=== PATIENT | female | born 1980 | race Caucasian/White ===

== ENCOUNTER 2019-05-18 22:58 | Emergency (ER) | payer BC, OTHER ==
[~2019-05-18] VITALS: Ht 170 cm; Wt 107.0 kg
[~2019-05-18 22:58] MED LIST: BIRTH CONTROL; FLUO20CA25 PO; HYDR1TAB PO; METR500T PO; MTP25TSR PO; NAPR550T PO; ONDA8TAB9 PO; TRM50T PO
[2019-05-19] MEDS ORDERED: amLODIPine 5 MG (NORVASC) TAB PO ONE (00:15)
--- NOTE | 2019-05-19 00:16 | ED Psychosocial ---
General Chief Complaint: Psych/Social Disorder Stated Complaint: DEPRESSION Nursing Triage Note: AMBULATORY TO ED ROOM 10 STATING SHE HAS BEEN OFF HER STRATTERA AND PROZAC SINCE MARCH FOLLOWING A CHANGE IN HCP THAT WOULD NOT REFILL THESE MEDICATIONS. PT STATES SHE TAKES NORVAC 5MG DAILY FOR HTN AND THE NEW HCP STATED THE STRATTERA AND PROZAC COULD CAUSE HTN AND WOULDN'T REFILL THESE MEDICATIONS. PER PT NEW HCP TOLD HER SHE NEEDED TO BE SEEN BY PSYCHIATRIST AND ATTEMPTED TO FIND HER SOMEONE LOCALLY TO HER IN [place] WITHOUT SUCCESS AND THE PCP WAS STILL TRYING TO FIND HER SOMONE TO SEE. PT STATES SHE PRESENTED TO THE ER TONIGHT BECAUSE SHE IS MORE "FRUSTRATED AND ANGRY" AND YELLED AT PETS THAT MADE NOISE TONIGHT. Source: patient Exam Limitations: no limitations (ORESTES MABRY) History of Present Illness Date Seen by Provider: May 18, 2019 Time Seen by Provider: 23:00 Initial Comments This is a 38 y/o female with long hx of depression controlled on Fluoxetine and ADHA controlled on Atomoxetine. Her regular doctor who used to prescribe her meds recently moved away and the refills she had written for her ran out in Mar 2018; States her new doctor, in [place], would not write refills for the mentioned meds "because he said they are causing my blood pressure to go up"; he only refilled her Norvasc 5mg daily. she is in the process of finding a new psychiatrist but she has been unsuccessful so far. States she had an anger outburst earlier this evening and thought she "couldn't take it anymore" so she presented to the ED with the goal of either getting a script for her Fluoxetine and Atomoxetine or getting set up with a psychiatrist through the ER. Denies any SI or HI, or any other sx at this time. Timing/Duration: other (chronic) Associated Symptoms: denies symptoms, suicidal ideation (ORESTES MABRY) Associated Symptoms: denies symptoms (DOUGLAS EMERY MD) Allergies and Home Medications Allergies Coded Allergies: No Known Drug Allergies (Unverified , 07/19/11) Patient Home Medication List Home Medication List Reviewed: Yes (DOUGLAS EMERY MD) Review of Systems Constitutional: No chills, No fever EENTM: no symptoms reported Respiratory: No cough, No dyspnea on exertion Cardiovascular: No chest pain, No palpitations Gastrointestinal: no symptoms reported Genitourinary: no symptoms reported Musculoskeletal: no symptoms reported Skin: No pruritus, No rash Psychiatric/Neurological: Denies Anxiety; Depressed, Emotional Problems; Denies Headache, Denies Weakness (ORESTES MABRY) Respiratory: no symptoms reported Cardiovascular: no symptoms reported Psychiatric/Neurological: Depressed, Emotional Problems (DOUGLAS EMERY MD) All Other Systems Reviewed Negative Unless Noted: Yes (DOUGLAS EMERY MD) Past Wbkaipv-Osohnm-Vbgjwe Hx Past Med/Social Hx: Reviewed Nursing Past Med/Soc Hx (DOUGLAS EMERY MD) Patient Social History Alcohol Use: Denies Use Recreational Drug Use: No Smoking Status: Never a Smoker Recent Foreign Travel: No Contact w/Someone Who Travel: No Recent Infectious Disease Expo: No Recent Hopitalizations: No Physical Abuse: No Sexual Abuse: No Mistreated: No Fear: No [facility] Immunizations Up To Date Date of Influenza Vaccine: Dec 18, 2011 (ORESTES MABRY [facility]) Seasonal Allergies Seasonal Allergies: No (ORSETES MABRY) Past Medical History Surgeries: No Respiratory: No Cardiac: Yes Hypertension Neurological: No Reproductive Disorders: No Female Reproductive Disorders: Endometriosis Sexually Transmitted Disease: No HIV/AIDS: No Genitourinary: No Gastrointestinal: No Musculoskeletal: No Endocrine: No HEENT: No Cancer: No Psychosocial: Yes Depression Integumentary: No Blood Disorders: No Adverse Reaction/Blood Tranf: No (ORESTES MABRY [facility]) Family Medical History Reviewed Nursing Family Hx (DOUGLAS EMERY MD) Physical Exam Vital Signs - First Documented 05/18/19 23:16 Temp 36.8 Pulse 101 Resp 18 B/P (MAP) 172/120 (137) O2 Delivery Room Air (DOUGLAS EMERY MD) Capillary Refill : Less Than 3 Seconds (ORESTES MABRY) Height, Weight, BMI Height: '" Weight: lbs. oz. kg; 37.00 BMI Method:Stated General Appearance: WD/WN, no apparent distress, other (pt smiling, does not appear upset. Pleasent, able to follow questions and answer appropriately w/o losing train of thoughts) HEENT: PERRL/EOMI Cardiovascular: tachycardia Neurologic/Psychiatric: alert, normal mood/affect, oriented x 3 Skin: normal color, warm/dry Lymphatic: no adenopathy (ORESTES MABRY) General Appearance: WD/WN, no apparent distress Respiratory: lungs clear, normal breath sounds Cardiovascular: regular rate, rhythm, no murmur Gastrointestinal: non tender, soft Neurologic/Psychiatric: alert, oriented x 3 Appearance/Memory: appropriate appearance, appropriate insight, neat Behavior/Eye Contact: cooperative, good eye contact, normal speech Thoughts/Hallucinations: normal thought pattern, no apparent hallucination Skin: normal color, warm/dry Denies suicidal or homicidal ideations (DOUGLAS EMERY MD) Progress/Results/Core Measures Results/Orders My Orders Orders - DOUGLAS EMERY MD Amlodipine Tablet (Norvasc Tablet) (05/19/19 00:15) (DOUGLAS EMERY MD) Medications Given in ED Current Medications Medications Dose Ordered Sig/Bess Route Start Time Stop Time Status Last Admin Dose Admin Amlodipine Besylate 5 mg ONCE ONCE PO 05/19/19 00:15 05/19/19 00:16 DC 05/19/19 00:17 5 MG (DOUGLAS EMERY MD) Vital Signs/I&O 05/18/19 23:16 Temp 36.8 Pulse 101 Resp 18 B/P (MAP) 172/120 (137) O2 Delivery Room Air (DOUGLAS EMERY MD) Blood Pressure Mean: 137 Progress Progress Note : Time: 23:00 Progress Note Seen and evaluated. (ORESTES MABRY) Progress Note : Progress Note I have seen and evaluated the patient and agree with above except as indicated. I have directed the plan of care. Patient is here with report of depression and blood pressure problems. She is currently trying to find a doctor for refills. Reports increased depression recently. She has been changed from metoprolol to Norvasc and is currently on only Norvasc 5 mg by mouth daily. Last dose was this morning. She is hoping to get refills for her medicines and help with establishing care. Evaluation as above. I did discuss with her at length regarding mental health services as well as medical services. She is from near [place] but is willing to drive over here. I did recommend the [facility] because they have all of her needs and one building and they have satellite clinic's that are closer to her. I will write prescriptions for her medicines as well as adjust her amlodipine from 5 to 10 mg daily. We will give her amlodipine 5 mg by mouth now. [facility] as well as instructed to transfer her records from her previous doctor to the [facility]. She states she will. Given the challenges of getting into a new doctor, I will write a two-month prescription with the understanding that she has to follow-up and seek outpatient primary care. She has been stable on the medicines for a long time and I think it would benefit her to stay on them pending transfer of care. Discharged home with return precautions. Patient verbalize understanding instructions and agreement with plan. (DOUGLAS EMERY MD) Departure Impression Primary Impression: Depression Qualified Codes: F32.9 - Major depressive disorder, single episode, unspecified Additional Impression: Hypertension Qualified Codes: I10 - Essential (primary) hypertension Disposition: 01 HOME, SELF-CARE Condition: Stable Departure-Patient Inst. Decision time for Depature: 00:38 (DOUGLAS EMERY MD) Referrals: NO,LOCAL PHYSICIAN (PCP) Primary Care Physician [facility] Patient Instructions: Depression, Adult (DC), High Blood Pressure (DC) Add. Discharge Instructions: All discharge instructions reviewed with patient and/or family. Voiced understanding. Take medications as prescribed. It is very important that you call and make appointment with the [facility] or other system of your choosing for continued mental health care as well as medical care to control your blood pressure. Further prescriptions will require outpatient physician. Return for worse pain, fever, vomiting, weakness, breathing problems or other concerns as needed. Scripts Fluoxetine HCl (Fluoxetine HCl) 40 Mg Capsule 40 MG PO DAILY for 60 Days, #60 CAP 0 Refills Prov: DOUGLAS EMERY MD 05/19/19 Atomoxetine HCl (Atomoxetine HCl) 40 Mg Capsule 40 MG PO DAILY for 60 Days, #60 CAP 0 Refills Prov: DOUGLAS EMERY MD 05/19/19 Amlodipine Besylate (Amlodipine Besylate) 10 Mg Tablet 10 MG PO DAILY for 60 Days, #60 TAB 0 Refills Prov: DOUGLAS EMERY MD 05/19/19 Work/School Note: Local Medical Staff [facility] May 19, 2019 00:16 DOUGLAS EMERY MD May 19, 2019 00:39
[2019-05-19] MEDS ORDERED: ATOM40CA6 PO (00:42)
[2019-05-19] MEDS ORDERED: AMLO10TA7 PO (00:42)
[2019-05-19] MEDS ORDERED: FLUO40CA PO (00:42)
[2019-05-19 00:52] VITALS: BP 178/95
== END 2019-05-19 00:53 | disposition home or self-care (01) ==
LOC: EDUNIT# 22:58 → ER 22:59
DX: F32.9 Major depressive disorder, single episode, unspecified (principal); I10 Essential (primary) hypertension; F90.9 Attention-deficit hyperactivity disorder, unspecified type
CPT/HCPCS: 99283